=== PATIENT | male | born 1990 | race Caucasian/White ===

== ENCOUNTER 2018-07-05 10:18 | Emergency (ER) | payer OTHER ==
[2018-07-05 10:19] VITALS: BMI 19.8
[2018-07-05 10:22] VITALS: BP 106/71; PULSE 61; RESP 20; TEMP 97.9; O2SAT 100
[2018-07-05] MEDS ORDERED: Absorbable Gelatin Sponge Size 12-7 ONE (10:28)
--- NOTE | 2018-07-05 10:32 | C.PDOC ---
History Of Present Illness 28 year old male is brought to the ED by EMS for evaluation of bleeding to his left calf varicose vein area which had spontaneous onset this morning. Patient denies trauma to the area. Patient is s/p tourniquet application by EMS en route. As per EMS and patient, denies lightheadedness, other symptoms or any other injuries at this time. Patient has history of prior varicose vein surgery to the same area while he was in [place] in 2012. Time Seen by Provider: 07/05/18 10:21 History Per: Patient, EMS History/Exam Limitations: no limitations Onset/Duration Of Symptoms: Sudden Onset Current Symptoms Are (Timing): Still Present Location Of Injury: Left: Leg Additional History Per: Patient Past Medical History Reviewed: Historical Data, Nursing Documentation, Vital Signs Vital Signs: Last Vital Signs Temp 97.9 F 07/05/18 10:25 Pulse 61 07/05/18 10:25 Resp 20 07/05/18 10:25 BP 106/71 07/05/18 10:25 Pulse Ox 100 07/05/18 10:43 - Medical History PMH: No Chronic Diseases Surgical History: No Surg Hx Family History: States: Unknown Family Hx - Social History Hx Alcohol Use: No Hx Substance Use: No - Immunization History Hx Tetanus Toxoid Vaccination: No Hx Influenza Vaccination: No Hx Pneumococcal Vaccination: No Review Of Systems Skin: Positive for: Other (bleeding to left calf varicose vein ) Neurological: Negative for: Other (lightheadedness ) Physical Exam - Physical Exam Appears: Non-toxic, No Acute Distress Skin: Normal Color, Warm, Dry Head: Atraumatic, Normacephalic Eye(s): bilateral: Normal Inspection Neck: Supple Chest: Symmetrical, No Deformity Cardiovascular: Rhythm Regular Respiratory: Normal Breath Sounds Extremity: Normal ROM, Capillary Refill (less than 2 seconds ), No Swelling, Other (tourniquet in place, was removed by me. no active bleeding noted. superficial chronic skin tear with underlying varicose veins to left mid inner calf. no evidence of trauma ) Pulses: Left Dorsalis Pedis: Normal, Right Dorsalis Pedis: Normal Neurological/Psych: Oriented x3, Normal Speech, Normal Cognition, Normal Sensation ED Course And Treatment O2 Sat by Pulse Oximetry: 100 (on RA) Pulse Ox Interpretation: Normal Progress Note: Gel foam, non-adherent and wound dresssing applied. Will observe patient and refer to vascular care for further evaluation. Disposition Counseled Patient/Family Regarding: Diagnosis, Need For Followup - Disposition [facility] Disposition: HOME/ ROUTINE Disposition Time: 10:31 Condition: IMPROVED Additional Instructions: IF RECUR BLEEDING, APPLY FIRM AND LOCAL PRESSURE TO AFFECTED AREA FOR 15 MINUTES CONTINUOUSLY. AVOID TRAUMA TO AREA FOLLOW UP CLINIC FOR POSSIBLE REPEAT VARICOSE VEIN SURGERY. Instructions: Varicose Veins (DC) - Clinical Impression Clinical Impression: Bleeding from varicose veins of left lower extremity - Scribe Statement The provider has reviewed the documentation as recorded by the Scribe (Rody Goel) Provider Attestation: All medical record entries made by the Scribe were at my direction and personally dictated by me. I have reviewed the chart and agree that the record accurately reflects my personal performance of the history, physical exam, medical decision making, and the department course for this patient. I have also personally directed, reviewed, and agree with the discharge instructions and disposition.
== END 2018-07-05 11:56 | disposition home or self-care (01) ==
LOC: C.ER 10:18
DX: I83.892 Varicose veins of left lower extremity with other complications (principal)